=== PATIENT | female | born 1955 | race Caucasian/White ===

== ENCOUNTER 2016-09-29 16:39 | Emergency (ER) | payer BC ==
[2016-09-29 16:59] VITALS: BP 111/61
--- NOTE | 2016-09-29 17:11 | UC ---
Respiratory Complaint HPI - HPI Summary HPI Summary: cough for 7days past couple of days has had a fever and fatigue, no chest pain or SOB - History of Current Complaint Chief Complaint: UCRespiratory Stated Complaint: COUGH AND FEVER Time Seen by Provider: 09/29/16 17:10 Hx Obtained From: Patient ?: No Onset/Duration: Gradual Onset, Lasting Days - 7, Still Present, Worse Since - past 2 days Timing: Constant Severity Initially: Mild Severity Currently: Mild Pain Intensity: 2 Pain Scale Used: 0-10 Numeric Character: Cough: Nonproductive Aggravating Factors: Nothing Alleviating Factors: Nothing Associated Signs And Symptoms: Positive: Fever, URI - Allergies/Home Medications Allergies/Adverse Reactions: Allergies Allergy/AdvReac Type Severity Reaction Status Date / Time Azithromycin [From Zithromax] Allergy Rash Verified 09/29/16 16:59 Penicillins Allergy Rash Verified 09/29/16 16:59 PMH/Surg Hx/FS Hx/Imm Hx Previously Healthy: No Endocrine History Of: Reports: Thyroid Disease Denies: Diabetes Cardiovascular History Of: Denies: Cardiac Disorders, Hypertension Respiratory History Of: Denies: COPD, Asthma GI/ History Of: Denies: Ulcer Cancer History Of: Denies: Breast Cancer - Surgical History Surgical History: Yes Surgery Procedure, Year, and Place: 2 c-sections - Family History Known Family History: Positive: None - Social History Occupation: Employed Full-time Lives: With Family Alcohol Use: Occasionally Substance Use Type: None Smoking Status (MU): Never Smoked Tobacco Review of Systems Constitutional: Fever, Chills, Fatigue Skin: Negative Eyes: Negative ENT: Negative Respiratory: Cough Cardiovascular: Negative Gastrointestinal: Negative Genitourinary: Negative Motor: Negative Neurovascular: Negative Musculoskeletal: Negative Neurological: Negative Psychological: Negative All Other Systems Reviewed And Are Negative: Yes Physical Exam Triage Information Reviewed: Yes Appearance: Well-Appearing, No Pain Distress, Well-Nourished Vital Signs: Initial Vital Signs Temp 100.1 F 09/29/16 16:54 Pulse 83 09/29/16 16:54 Resp 12 09/29/16 16:54 BP 111/61 09/29/16 16:54 Pulse Ox 98 09/29/16 16:54 Vital Signs Reviewed: Yes Eye Exam: Normal Eyes: Positive: Conjunctiva Clear ENT Exam: Normal ENT: Positive: Normal ENT inspection, Hearing grossly normal, Pharynx normal, TMs normal. Negative: Nasal congestion, Nasal drainage, Tonsillar swelling, Tonsillar exudate, Trismus, Muffled/hoarse voice Neck exam: Normal Neck: Positive: Supple, Nontender, No Lymphadenopathy Respiratory Exam: Normal Respiratory: Positive: Chest non-tender, Lungs clear, Normal breath sounds, No respiratory distress, No accessory muscle use Cardiovascular Exam: Normal Cardiovascular: Positive: RRR, No Murmur, Pulses Normal, Brisk Capillary Refill Musculoskeletal Exam: Normal Musculoskeletal: Positive: Strength Intact, ROM Intact, No Edema Neurological Exam: Normal Neurological: Positive: Alert, Muscle Tone Normal Psychological Exam: Normal Skin Exam: Normal UC Diagnostic Evaluation - Laboratory O2 Sat by Pulse Oximetry: 98 Diagnostic Studies Comment: Infuenza A/B (-) Respiratory Course/Dx - Course Course Of Treatment: increase fluids, otc medications for symptoms relief follow with pcp - Differential Dx/Diagnosis Differential Diagnosis/HQI/PQRI: Asthma, Bronchitis, Influenza, Lower Resp Infection, Sinusitis, Tuberculosis Provider Diagnoses: URI, Viral illness Discharge - Discharge Plan Condition: Stable Disposition: HOME Patient Education Materials: Upper Respiratory Infection (ED) Referrals: Lindy Nation MD [Primary Care Provider] - 5 Days
== END 2016-09-29 17:48 | disposition home or self-care (01) ==
LOC: UCEAST 16:39
DX: J06.9 Acute upper respiratory infection, unspecified (principal); Z88.0 Allergy status to penicillin; Z88.1 Allergy status to other antibiotic agents
CPT/HCPCS: 87502; 99211; G0463

== ENCOUNTER 2017-03-02 19:03 | Emergency (ER) | payer BC ==
--- NOTE | 2017-03-02 19:07 | UC ---
Skin Complaint HPI - HPI Summary HPI Summary: 61 YEAR OLD FEMALE PRESENTS WITH COMPLAINS OF RASH ON BOTH HER FOREARMS AND FACE. - History of Current Complaint Time Seen by Provider: 03/02/17 19:06 Stated Complaint: RASHES Hx Obtained From: Patient Onset/Duration: Sudden Onset Onset Severity: Moderate Current Severity: Moderate Pain Scale Used: 0-10 Numeric - 5 Location: Face, Hand (Right), Hand (Left) Character: Pruritus Aggravating: Nothing Alleviating: Nothing Associated Signs & Symptoms: Positive: Rash, Red Streaks - Allergy/Home Medications Allergies/Adverse Reactions: Allergies Allergy/AdvReac Type Severity Reaction Status Date / Time Azithromycin [From Zithromax] Allergy Rash Verified 03/02/17 19:09 Penicillins Allergy Rash Verified 03/02/17 19:09 Review of Systems Constitutional: Negative Skin: Rash, Other - BILATERAL FPOREARM RASH Eyes: Negative ENT: Negative Respiratory: Negative Cardiovascular: Negative Gastrointestinal: Negative Genitourinary: Negative Motor: Negative Neurovascular: Negative Musculoskeletal: Negative Neurological: Negative Psychological: Negative All Other Systems Reviewed And Are Negative: Yes PMH/Surg Hx/FS Hx/Imm Hx Previously Healthy: Yes - Surgical History Surgical History: Yes Surgery Procedure, Year, and Place: 2 c-sections - Family History Known Family History: Positive: None - Social History Alcohol Use: Occasionally Substance Use Type: None Smoking Status (MU): Never Smoked Tobacco Physical Exam Triage Information Reviewed: Yes Eye Exam: Normal ENT Exam: Normal Dental Exam: Normal Neck exam: Normal Neck: Positive: 1 Respiratory Exam: Normal Cardiovascular Exam: Normal Abdominal Exam: Normal Musculoskeletal Exam: Normal Neurological Exam: Normal Psychological Exam: Normal Skin: Positive: rashes - BILATERAL FOREARM RASH Course/Dx - Diagnoses Provider Diagnoses: POISON IVORY. RASH Discharge - Discharge Plan Condition: Stable Disposition: HOME Prescriptions: Triamcinolone 0.1% CREAM (NF) [Kenalog 0.1% Cream (NF)] 1 applic TOPICAL TID PRN #90 gm PRN Reason: Rash predniSONE TAB* [Deltasone TAB*] 40 mg PO DAILY #10 tab Patient Education Materials: Acute Rash (ED) Referrals: Lindy Nation MD [Primary Care Provider] - If Needed
[2017-03-02 19:09] VITALS: BP 106/68
[2017-03-02] MEDS ORDERED: predniSONE TAB* 20 MG PO ONE (19:21)
[2017-03-02] MEDS ORDERED: LoraTADine TAB(NF) 10 MG TAB (AUTOSUB to CETIRIZINE) PO ONE (19:22)
== END 2017-03-02 19:36 | disposition home or self-care (01) ==
LOC: UCEAST 19:03
DX: L23.7 Allergic contact dermatitis due to plants, except food (principal); Z88.1 Allergy status to other antibiotic agents; Z88.0 Allergy status to penicillin
CPT/HCPCS: 99212; A9270-GY; G0463; J7512

== ENCOUNTER 2019-07-19 08:59 | Emergency (ER) | payer BC ==
--- OUTSIDE RECORDS SUMMARY | 2019-07-19 09:06 | XMS REPORT | Continuity of Care Document ---
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 Onset: 02/28/2011 Acute bronchitis Chirag Boyce M.D. Onset: 10/03/2016 Social History Type Date Description Comments Sex Unknown Tobacco Use Start: Unknown Never Smoked Cigarettes ETOH Use Drinks 1 Alcoholic Beverage Per Day Tobacco Use Start: Unknown Patient has never smoked Smoking Status Reviewed: 07/16/19 Patient has never smoked Allergies, Adverse Reactions, Alerts Active Allergies Reaction Severity Comments Date Penicillin 09/02/2009 Azithromycin bad rash 01/06/2015 Medications Active Medications SIG Qnty Indications Ordering Provider Date Sulfamethoxazole/Trim 1 by mouth twice 6tabs R30.0 Tanja Daly, 07/16/2019 ethoprim DS daily M.D., FACP 800-160mg Tablets Vagifem inser 1 tablet 10tabs Lindy Nation, 01/01/2013 10mcg Tablets vaginally at M.D. bedtime every 3 days Multivitamin With 1 po qd Lindy Nation, 03/01/2011 Iron M.D. Tablets Levothyroxine Sodium take 1 tablet by 90tabs Lindy Nation, 09/23/2010 mouth once daily M.D. 50mcg Tablets Krill Oil Unknown Capsules Calcium 500 +D 1 by mouth twice Unknown a day [id number] Tablets Flonase Allergy 2 puffs each nare Unknown Relief every in the 50mcg/Act morning Suspension Systane Complete Unknown 0.6% Solution Medications Administered in Office Medication SIG Qnty Indications Ordering Provider Date Influenza,Unspecified Unknown 03/25/2018 Injection PPD Nurse Visit A 04/18/2016 Injection PPD Lindy Nation M.D. 04/11/2015 Injection Immunizations CPT Code Status Date Vaccine Lot # [id number] Given 07/25/2017 Tetanus And Diptheria (Td) For Adult Use [id number] Preservative Free [id number] Given 09/08/2007 Tdap - Tetanus/Diptheria/Acellular Pertussis [id number] Given 05/22/2006 Hepatitis B Vaccine Adult Dosage [id number] Given 05/22/2006 Hepatitis B Vaccine Adult Dosage [id number] Given 05/22/2006 Influenza Virus 3Yrs & Over Vital Signs Date Vital Result Comment 07/16/2019 11:31am Height 61.50 inches 5'1.50" Heart Rate 83 /min BP Systolic Sitting 109 mmHg BP Diastolic Sitting 73 mmHg Body Temperature 97.7 F O2 % BldC Oximetry 98 % 07/28/2018 9:48am Height 61.50 inches 5'1.50" Weight 124.38 lb Heart Rate 68 /min BP Systolic 124 mmHg BP Diastolic 68 mmHg Body Temperature 98.2 F O2 % BldC Oximetry 98 % BMI (Body Mass Index) 23.1 kg/m2 Results Test Acquired Date Facility Test Result H/L Range Note Ua Routine 07/16/2019 [facility] House Ua Specific [place] 1.005 Ua PH 6 Ua Color yellow Ua Appera cloudy Ua WBC ++ Ua Protein trace Ua Glucose normal Ua Ketones neg Ua Bilirubin neg Ua Urobilinogen normal Ua Nitrite neg Ua Occult Blood 250 Antonio/ul Procedures Date Code Description Status 09/02/2018 [id number] Mammogram Completed 12/05/2017 [id number] Colonoscopy Completed 08/29/2017 [id number] Bone Mineral Density Test Completed 08/29/2017 [id number] Mammogram Completed 08/01/2016 [id number] Mammogram Completed 04/29/2015 [id number] Mammogram Completed 04/27/2014 [id number] Mammogram Completed 04/22/2013 [id number] Mammogram Completed 04/07/2012 [id number] Mammogram Completed 03/28/2011 [id number] Bone Mineral Density Test Completed 03/28/2011 [id number] Mammogram Completed 11/08/2009 [id number] Mammogram Completed 11/25/2007 [id number] Colonoscopy Completed 09/25/2007 [id number] Bone Mineral Density Test Completed Medical Devices Description No Information Available Encounters Description No Information Available Assessments Date Code Description Provider 07/16/2019 R30.0 Dysuria [facility] Treatment Future Appointment(s):07/31/2019 11:00 am - Lindy Nation M.D. at [facility]07/16/2019 - Tanja Daly M.D., FACPR30.0 DysuriaNew Medication:Sulfamethoxazole/Trimethoprim DS 800-160 mg - 1 by mouth twice dailyComments:URINARY SYMPTOMS:It is likely that your symptoms are consistent with an uncomplicated UTI. I have sent an rx for an antibiotic to your pharmacy.Keep well hydrated. There is a substance in cranberries that makes the bacteria common to these infections less "sticky" so you may want to try drinking cranberry juice or taking a supplement.Please call back if your symptoms do not fully resolve; under suchcircumstances we should obtain a urine culture and a pelvic exam. We talked about kidney stones: I do not think this is as likely given what you have described today.Follow up:keep appointment with Dr. Nation Functional Status Description No Information Available Mental Status Description No Information Available Referrals Description No Information Available
--- OUTSIDE RECORDS SUMMARY | 2019-07-19 09:06 | XMS REPORT | Continuity of Care Document ---
:1955 External Reference #:[id number] Author Name Bart Reyes, OD Address [address] [place] [address] Care Team Providers Name Role Phone Mariluz Nation MD Care Team Information Wood Technologist [phone] Problems Description No Information Available Social History Type Date Description Comments Sex Unknown ETOH Use Occasionally consumes alcohol Tobacco Use Start: Unknown Patient has never smoked Smoking Status Reviewed: 05/27/19 Patient has never smoked Allergies, Adverse Reactions, Alerts Active Allergies Reaction Severity Comments Date Penicillin 05/27/2019 Erythromycin 05/27/2019 Medications Active Medications SIG Qnty Indications Ordering Provider Date Levothyroxine Sodium Unknown 50mcg Tablets Estradiol 10mcg Unknown Tablets Womens One Daily Unknown Tablets Vitamin D Unknown 1000Unit Tablets Calcium + D Unknown [id number] Chewtabs Krill Oil 300mg Unknown Capsules Immunizations Description No Information Available Vital Signs Date Vital Result Comment 05/27/2019 11:55am Intraocular Pressure Right Eye 16 mmHg Intraocular Pressure Left Eye 16 mmHg Results Description No Information Available Procedures Date Code Description Status 05/27/2019 04222 Refraction Completed 05/27/2019 76310 Eye Exam New Comprehensive Completed Medical Devices Description No Information Available Encounters Description No Information Available Assessments Date Code Description Provider 05/27/2019 H25.13 Age-related nuclear cataract, bilateral Bart Reyes, OD 05/27/2019 H02.831 Dermatochalasis of right upper eyelid Bart Reyes, OD 05/27/2019 H02.834 Dermatochalasis of left upper eyelid Bart Reyes, OD 05/27/2019 H52.4 Presbyopia Bart Reyes, OD Plan of Treatment 05/27/2019 - Bart Reyes, ODH25.13 Age-related nuclear cataract, bilateralFollow up:yearly full, sooner PRNH02.831 Dermatochalasis of right upper eyelidFollow up:yearly full, sooner PRNH02.834 Dermatochalasis of left upper eyelidFollow up:yearly full, sooner PRNH52.4 PresbyopiaFollow up:yearly full, sooner PRN Functional Status Description No Information Available Mental Status Description No Information Available Referrals Description No Information Available
[2019-07-19 09:21] VITALS: BP 109/65
--- NOTE | 2019-07-19 10:00 | ED ---
GI/ HPI - HPI Summary HPI Summary: 64 yo WF c/o CAPUTO and pain near TMJ x 2 days, just finished Bactrim x3 days fo a UTI that she waited to tx for a week, has some sore throat, denies cough. Patient states she has just finished reading a course of Bactrim double strength after waiting 1 week of having the dysuria and urinary frequency. Patient feels UTI symptoms are still persistent and not fully tx'd. Currently has vague headache and nausea/vomiting. Denies low back pain, fever, chills. - History of Current Complaint Chief Complaint: UCGeneralIllness Time Seen by Provider: 07/19/19 09:12 Stated Complaint: HEADACHE, JAW PAIN,EAR PAIN,NAUSEA Hx Obtained From: Patient Onset/Duration: Started Days Ago Timing: Constant, Intermittent Severity: Moderate Current Severity: Moderate Pain Intensity: 6 - Allergy/Home Medications Allergies/Adverse Reactions: Allergies Allergy/AdvReac Type Severity Reaction Status Date / Time azithromycin [From Zithromax] Allergy Rash Verified 07/19/19 09:15 Penicillins Allergy Rash Verified 07/19/19 09:15 Home Medications: Home Medications Acetaminophen [Mapap] 1,000 mg PO ONCE PRN 07/19/19 [History Confirmed 07/19/19] Propylene Glycol [Systane Complete] 1 drop BOTH EYES DAILY 07/19/19 [History Confirmed 07/19/19] PMH/Surg Hx/FS Hx/Imm Hx Previously Healthy: Yes Endocrine/Hematology History: Reports: Hx Thyroid Disease Denies: Hx Diabetes Cardiovascular History: Denies: Hx Hypertension Respiratory History: Denies: Hx Asthma, Hx Chronic Obstructive Pulmonary Disease (COPD) GI History: Denies: Hx Ulcer - Cancer History Hx Chemotherapy: No Hx Radiation Therapy: No - Surgical History Surgery Procedure, Year, and Place: 2 c-sections Infectious Disease History: No Infectious Disease History: Denies: Hx Hepatitis, Hx Human Immunodeficiency Virus (HIV), Traveled Outside the [place] in Last 30 Days - Family History Known Family History: Positive: Non-Contributory - Social History Alcohol Use: Weekly Substance Use Type: Reports: None Smoking Status (MU): Never Smoked Tobacco Review of Systems Constitutional: Negative Eyes: Negative ENT: Negative Cardiovascular: Negative Respiratory: Negative Gastrointestinal: Negative Positive: frequency, urgency Musculoskeletal: Negative Skin: Negative Positive: Headache Psychological: Normal All Other Systems Reviewed And Are Negative: Yes Physical Exam - Summary Physical Exam Summary: Vital Signs Reviewed: Yes Eye Exam: Normal Eyes: Positive: Conjunctiva Clear ENT: Positive: Normal ENT inspection Neck: Positive: Supple Respiratory Exam: Normal Respiratory: Positive: Lungs clear, Normal breath sounds. Cardiovascular Exam: Normal Cardiovascular: Positive: RRR Abdomen: NT/ND No CVA tenderness Musculoskeletal Exam: Normal Neurological Exam: Normal Psychological Exam: Normal Skin Exam: Normal Triage Information Reviewed: Yes Vital Signs On Initial Exam: Initial Vitals Temp Pulse Resp BP Pulse Ox 36.5 C 85 18 109/65 100 07/19/19 09:09 07/19/19 09:09 07/19/19 09:09 07/19/19 09:09 07/19/19 09:09 Diagnostics - Vital Signs Vital Signs Temp Pulse Resp BP Pulse Ox 07/19/19 09:09 36.5 C 85 18 109/65 100 - Laboratory Lab Statement: Any lab studies that have been ordered have been reviewed, and results considered in the medical decision making process. GIGU Course/Dx - Course Assessment/Plan: Refractory UTIUA still shows blood and leukoesterase 3+, patient was only treated with 3 day course of Bactrim, I suspect UTI was incompletely treated, so will extend tx with Bactrim DS (which she was on previously) and will send out for urine culture. Headache and nausea vomiting likely persistent systemic signs of infection, due to current refractory UTI/ cystitis. Will treat underlying etiology of systemic infection (UTI) and reevaluate if headache and nausea/vomiting still persist after treatment of UTI. - Diagnoses Provider Diagnoses: UTI (urinary tract infection), bacterial, Headache Discharge ED - Sign-Out/Discharge Documenting (check all that apply): Patient Departure All imaging exams completed and their final reports reviewed: No Studies - Discharge Plan Condition: Stable Disposition: HOME Prescriptions: Ondansetron ODT TAB* [Zofran 4 MG Odt TAB*] 4 mg PO Q6H PRN 5 Days #20 tab.odt PRN Reason: Nausea Sulfamethox/Trimethoprim DS* [Bactrim DS 800/160 TAB*] 1 tab PO BID 10 Days #20 tab Referrals: Lindy Nation MD [Primary Care Provider] - - Billing Disposition and Condition Condition: STABLE Disposition: Home
[2019-07-19 10:12] LABS: Influenza A Molecular NEGATIVE (Negative); Influenza B Molecular NEGATIVE (Negative)
[2019-07-19] MEDS ORDERED: Ondansetron ODT TAB* 4 MG PO ONE (10:27)
--- NOTE | 2019-07-21 20:29 | UC ---
- Progress Note Progress Note: Urine culture from Gen. 2019 comes back Escherichia coli 50-75,000. Patient was started on Bactrim. The Escherichia coli is resistant to Bactrim. I have called in nitrofurantoin. Nursing to call patient so that she can start the nitrofurantoin. Course/Dx - Diagnoses Provider Diagnoses: UTI (urinary tract infection), bacterial, Headache Discharge ED - Sign-Out/Discharge Documenting (check all that apply): Patient Departure All imaging exams completed and their final reports reviewed: No Studies - Discharge Plan Condition: Stable Disposition: HOME Prescriptions: Nitrofurantoin Monohyd/M-Cryst [Macrobid 100 mg Capsule] 100 mg PO BID #20 cap Ondansetron ODT TAB* [Zofran 4 MG Odt TAB*] 4 mg PO Q6H PRN 5 Days #20 tab.odt PRN Reason: Nausea Sulfamethox/Trimethoprim DS* [Bactrim DS 800/160 TAB*] 1 tab PO BID 10 Days #20 tab Patient Education Materials: Urinary Tract Infection in Women (ED) Referrals: Lindy Nation MD [Primary Care Provider] - - Billing Disposition and Condition Condition: STABLE Disposition: Home
== END 2019-07-19 10:45 | disposition home or self-care (01) ==
LOC: UCEAST 08:59
DX: R51 Headache (principal); N39.0 Urinary tract infection, site not specified; J02.9 Acute pharyngitis, unspecified; B96.89 Other specified bacterial agents as the cause of diseases classified elsewhere; R31.9 Hematuria, unspecified; Z88.1 Allergy status to other antibiotic agents; Z88.0 Allergy status to penicillin
CPT/HCPCS: 81003; 87077; 87086; 87186; 99212; A9270-GY; G0463